=== PATIENT | female | born 2005 | race Caucasian/White ===

== ENCOUNTER 2023-12-12 03:28 | Outpatient (CLI) | payer MEDICAID, SELFPAY ==
[2023-12-12 15:46] LABS: HCT 39.5 % (36.0-46.0); HGB 13.2 g/dL (11.2-15.7); MCH 29.6 pg (27.0-33.0); MCHC 33.4 % (32.0-36.0); MCV 89 fL (80-95); MPV 9.9 fL (8.0-11.0); Platelet Count 198 10^3/uL (130-400); RBC 4.46 10^6/uL (3.93-5.22); RDW 12.1 % (11.7-14.6); RDW-SD 39.6 fL; WBC 6.26 10^3/uL (4.4-10.8)
[2023-12-12 16:37] LABS: ALT 15 U/L (14-59); AST 10 U/L (15-37); Albumin 4.1 g/dL (3.4-5.0); Alkaline Phosphatase 75 U/L (46-116); Anion Gap 8.7 mmol/L (3-11); BUN 12 mg/dL (7-18); Bilirubin, Total 0.44 mg/dL (0.2-1.0); CO2 24.3 mmol/L (21.0-32.0); CREATININE 0.6 mg/dL (0.55-1.02); Chloride 107 mmol/L (98-107); Glucose 97 mg/dL (74-106); Potassium 3.9 mmol/L (3.5-5.1); Sodium 140 mmol/L (136-145); TSH (W/Ref FT4) 1.16 uIU/mL (0.36-3.74); Total Protein 7.6 g/dL (6.4-8.2); Vitamin B12 286 pg/mL (193-986)
== END 2023-12-12 03:29 | disposition home or self-care (01) ==
LOC: LBO 03:28
PROVIDERS: PCP Nurse Practitioner Family; Referring Provider Nurse Practitioner Family; Visit Provider Nurse Practitioner Family
DX: R20.0 Anesthesia of skin (principal); R20.2 Paresthesia of skin
CPT/HCPCS: 36415; 80053; 85027; 82607; 83036; 84443

== ENCOUNTER 2023-12-19 03:13 | Outpatient (CLI) | payer MEDICAID, SELFPAY ==
[2023-12-19] MEDS: Inhaler, Assist Device 1 EACH MC (15:00)
[2023-12-19] MEDS: Methacholine 100 MG VIAL IH (16:56)
[2023-12-19] MEDS: Albuterol HFA 18 GM 200 PUFF INH IH (16:56)
--- NOTE | 2023-12-24 14:24 | W.PFT ---
Date of service: 12/19/23 Time of Service: 14:49 Pulmonary Function Test Result Indications: Dyspnea Interpretation Spirometry: There is no baseline airflow limitation. There was a 28% decrease in FEV1 with administration of 1 mg/mL methacholine. Impression Normal baseline spirometry with a positive methacholine challenge. Clinical Correlation therefore is recommended.
== END 2023-12-19 03:14 | disposition home or self-care (01) ==
LOC: RT 03:13
PROVIDERS: PCP Nurse Practitioner Family; Visit Provider Nurse Practitioner Family
DX: R06.00 Dyspnea, unspecified (principal)
CPT/HCPCS: 94060; 94070; J7674

== ENCOUNTER 2025-02-16 14:39 | Outpatient (CLI) | payer MEDICAID, SELFPAY ==
[2025-02-16 15:12] LABS: HCT 41.1 % (36.0-46.0); HGB 13.5 g/dL (11.2-15.7); MCH 28.8 pg (27.0-33.0); MCHC 32.8 % (32.0-36.0); MCV 88 fL (80-95); MPV 10.1 fL (8.0-11.0); Platelet Count 239 10^3/uL (130-400); RBC 4.68 10^6/uL (3.93-5.22); RDW 11.9 % (11.7-14.6); RDW-SD 38.2 fL; WBC 5.67 10^3/uL (4.4-10.8)
[2025-02-16 16:41] LABS: ALT 15 U/L (10-49); AST 15 U/L (<34); Albumin 4.8 g/dL (3.2-5.0); Alkaline Phosphatase 62 U/L (46-116); Anion Gap 9.5 mmol/L (3-11); BUN 7 mg/dL (9-23); Bilirubin, Total 0.5 mg/dL (0.2-1.2); CO2 27.5 mmol/L (20.0-31.0); Calcium 9.4 mg/dL (8.3-10.6); Chloride 104 mmol/L (98-107); Glucose 93 mg/dL (74-106); Potassium 4.0 mmol/L (3.5-5.1); Sodium 141 mmol/L (136-145); Total Protein 7.6 g/dL (5.7-8.2)
[2025-02-16 16:45] LABS: TSH (W/Ref FT4) 0.78 uIU/mL (0.55-4.78); Vitamin B12 556 pg/mL (211-911); Vitamin D 25 Total 33 ng/mL (30-100)
== END 2025-02-16 14:40 | disposition home or self-care (01) ==
LOC: LBO 14:40
PROVIDERS: PCP Nurse Practitioner Family; Visit Provider Nurse Practitioner Family
DX: R53.83 Other fatigue (principal)
CPT/HCPCS: 36415; 80053; 82306; 85027; 82607; 84443